=== PATIENT | male | born 1945 | race Caucasian/White ===

== ENCOUNTER 2017-08-13 20:11 | Emergency (ER) | payer MEDICARE ==
[~2017-08-13] VITALS: Ht 180.3 cm; Wt 125.1 kg
[2017-08-13 20:25] VITALS: BP 164/81
[2017-08-13] MEDS ORDERED: LIDOCAINE 2%, 20ML INFIL ONE (21:00)
[2017-08-13] MEDS ORDERED: EPINEPHRINE 1 MG/ML, 1ML ONE (21:36)
[2017-08-13] MEDS ORDERED: BACITRACIN ZINC OINT 500U/GM, 0.9 GM ONE ×2 (23:11→23:17)
== END 2017-08-13 23:59 | disposition home or self-care (01) ==
LOC: ED 23:37
DX: S01.312A Laceration without foreign body of left ear, initial encounter (principal); I10 Essential (primary) hypertension; E78.00 Pure hypercholesterolemia, unspecified; W01.0XXA Fall on same level from slipping, tripping and stumbling without subsequent striking against object, initial encounter; Y93.89 Activity, other specified; Y92.009 Unspecified place in unspecified non-institutional (private) residence as the place of occurrence of the external cause; Y99.9 Unspecified external cause status
CPT/HCPCS: 13152; 99285